=== PATIENT | male | born 1965 | race American Indian/Alaskan Native ===

== ENCOUNTER 2024-10-25 18:04 | Emergency (ER) | payer SELFPAY | END 2024-10-25 21:35 | disposition home or self-care (01) | LOC: FB.ED 18:04 | DX: S92.002A Unspecified fracture of left calcaneus, initial encounter for closed fracture (principal); I10 Essential (primary) hypertension; F17.200 Nicotine dependence, unspecified, uncomplicated; X50.9XXA Other and unspecified overexertion or strenuous movements or postures, initial encounter | CPT/HCPCS: 73630-LT; 99283 ==